=== PATIENT | male | born 1995 | race Caucasian/White ===

== ENCOUNTER 2019-11-05 17:21 | Emergency (ER) | payer MEDICAID ==
[~2019-11-05] VITALS: Ht 188 cm; Wt 80.0 kg
[2019-11-05 17:22] VITALS: BP 111/59
[2019-11-05] MEDS ORDERED: DOXYCYCLINE 100MG CAPSULE PO STA (17:41)
== END 2019-11-05 18:02 | disposition home or self-care (01) ==
LOC: ER 17:22
DX: S20.361A Insect bite (nonvenomous) of right front wall of thorax, initial encounter (principal); W57.XXXA Bitten or stung by nonvenomous insect and other nonvenomous arthropods, initial encounter; Y93.89 Activity, other specified; Y92.89 Other specified places as the place of occurrence of the external cause; Y99.9 Unspecified external cause status
CPT/HCPCS: 99283